=== PATIENT | female | born 1990 | race African-American/Black ===

== ENCOUNTER 2018-09-11 10:16 | Observation (INO) | payer OTHER ==
--- NOTE | 2018-09-11 11:11 | PDOC ---
History of Present Illness - History of Present Illness Initial Comments: 09/11/18 11:39 The patient is a 28 year old female, with a significant past medical history of iron deficiency anemia, who presents to the emergency department sent to the ED for blood transfusion after lab work revealing a hemoglobin 5.7 yesterday. The patient states she has been experiencing intermittent left chest pain since getting the results from the office yesterday and states she can not tell if the pain is stress/anxiety or "real chest pain." The patient denies shortness of breath, headache and dizziness. The patient denies fever, chills, nausea, vomit, diarrhea and constipation. The patient denies dysuria, frequency, urgency and hematuria. 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) <Aurora Sims - Last Filed: 09/11/18 11:39> - General History Source: Patient Exam Limitations: No Limitations <Patrizia Gonzalez - Last Filed: 09/11/18 12:28> - General Chief Complaint: Revisit, Lab Variance Stated Complaint: LOW BLOOD COUNT Time Seen by Provider: 09/11/18 10:42 Past History <Aurora Sims - Last Filed: 09/11/18 11:39> - Past Medical History COPD: No Other medical history: on Methadone - Suicide/Smoking/Psychosocial Hx Smoking History: Current every day smoker Number of Cigarettes Smoked Daily: 20 Information on smoking cessation initiated: Yes Hx Alcohol Use: No Drug/Substance Use Hx: No <Patrizia Gonzalez - Last Filed: 09/11/18 12:28> - Past Medical History Allergies/Adverse Reactions: Allergies Allergy/AdvReac Type Severity Reaction Status Date / Time No Known Allergies Allergy Verified 09/11/18 10:25 Home Medications: Ambulatory Orders NK [No Known Home Medication] 09/11/18 Review of Systems - Review of Systems Able to Perform ROS?: Yes Comments:: 09/11/18 11:41 CONSTITUTIONAL: Absent: fever, no chills, no fatigue EYES: Absent: visual changes ENT: Absent: ear pain, no sore throat CARDIOVASCULAR: (+) chest pain, Absent: no palpitations RESPIRATORY: Absent: cough, no SOB GASTROINTESTINAL: Absent: abdominal pain, no nausea, no vomiting, no constipation, no diarrhea GENITOURINARY: Absent: dysuria, no frequency, no hematuria MUSCULOSKELETAL: Absent: back pain, no arthralgia, no myalgia SKIN: Absent: rash NEURO: Absent: headache <KavitaCarmita ortizanda - Last Filed: 09/11/18 11:39> *Physical Exam - Vital Signs Last Vital Signs Temp Pulse Resp BP Pulse Ox 98 F 103 H 19 108/41 L 100 09/11/18 10:22 09/11/18 10:22 09/11/18 10:22 09/11/18 10:22 09/11/18 10:22 - Physical Exam Comments: 09/11/18 11:42 GENERAL: The patient is in no acute distress. HEAD: Normal with no signs of trauma. EYES: (+) conjunctiva pallor. PERRLA, EOMI, sclera anicteric, ENT: Ears normal, nares patent, oropharynx clear without exudates. Moist mucous membranes. NECK: Normal range of motion, supple without lymphadenopathy, JVD, or masses. LUNGS: Breath sounds equal, clear to auscultation bilaterally. No wheezes, and no crackles. HEART:Regular rate and rhythm, normal S1 and S2 without murmur, rub or gallop. ABDOMEN: Soft, nontender, normoactive bowel sounds. No guarding, no rebound. No masses palpable. EXTREMITIES: Normal range of motion, no edema. No clubbing or cyanosis. No erythema, or tenderness. NEUROLOGICAL: Cranial nerves II through XII grossly intact. Normal speech. No focal neurological deficits. MUSCULOSKELETAL: Back non-tender to palpation, no CVA tenderness SKIN: Warm, Dry, normal turgor, no rashes or lesions noted. <Aurora Sims - Last Filed: 09/11/18 11:39> - Vital Signs Last Vital Signs Temp Pulse Resp BP Pulse Ox 98 F 103 H 19 108/41 L 100 09/11/18 10:22 09/11/18 10:22 09/11/18 10:22 09/11/18 10:22 09/11/18 10:22 <Patrizia Gonzalez - Last Filed: 09/11/18 12:28> Moderate Sedation - Procedure Monitoring Vital Signs: Procedure Monitoring Vital Signs Temperature 98 F 09/11/18 10:22 Pulse Rate 103 H 09/11/18 10:22 Respiratory Rate 19 09/11/18 10:22 Blood Pressure 108/41 L 09/11/18 10:22 O2 Sat by Pulse Oximetry (%) 100 09/11/18 10:22 <Aurora Sims - Last Filed: 09/11/18 11:39> - Procedure Monitoring Vital Signs: Procedure Monitoring Vital Signs Temperature 98 F 09/11/18 10:22 Pulse Rate 103 H 09/11/18 10:22 Respiratory Rate 19 09/11/18 10:22 Blood Pressure 108/41 L 09/11/18 10:22 O2 Sat by Pulse Oximetry (%) 100 09/11/18 10:22 <Patrizia Gonzalez - Last Filed: 09/11/18 12:28> ED Treatment Course - LABORATORY CBC & Chemistry Diagram: 09/11/18 11:00 09/11/18 11:15 - ADDITIONAL ORDERS Additional order review: Laboratory Results 09/11/18 11:00 Blood Type Cancelled Antibody Screen Cancelled 09/11/18 11:00 RBC 3.91 MCV 52.3 L MCHC 29.2 L RDW 21.0 H MPV 8.7 Neutrophils % 65.1 Lymphocytes % 25.5 Monocytes % 5.6 Eosinophils % 3.2 Basophils % 0.6 <Aurora Sims - Last Filed: 09/11/18 11:39> - LABORATORY CBC & Chemistry Diagram: 09/11/18 11:00 09/11/18 11:15 <Patrizia Gonzalez - Last Filed: 09/11/18 12:28> Medical Decision Making - Medical Decision Making 09/11/18 11:15 Ms Moore is a 28 yo F who presents to the ER due to anemia Pt has a history of metomenorrhagiaand subsequent anemia Pt was seen by head waitress placed on control Pt still having heavy periods No lightheadedness or dizziness Pt does have intermittent chest pain No shortness of breath Hgb 5.7 (outpatient) Clinical impression: Anemia Will do basic labs and type and screen Will transfuse Will place on observation 09/11/18 11:54 Laboratory Tests 09/11/18 09/11/18 11:00 11:00 WBC 8.4 Hgb 6.0 L* Hct 20.4 L Plt Count 482 H Serum , Qual Negative call placed to Dr Reed Will place on observation PRBC ordered 09/11/18 12:28 EKG - Twelve-lead EKG was performed and reviewed by me. There is normal sinus rhythm with a normal rate. The axis is normal. The intervals are normal. There are no ST or T wave abnormalities. Impression: Normal twelve-lead EKG <Patrizia Gonzalez - Last Filed: 09/11/18 12:28> *DC/Admit/Observation/Transfer - Attestations Scribe Attestion: 09/11/18 11:42 Documentation prepared by Aurora Sims, acting as medical educator for Patrizia Gonzalez MD <Aurora Sims - Last Filed: 09/11/18 11:39> - Discharge Dispostion Decision to Admit order: Yes <Patrizia Gonzalez - Last Filed: 09/11/18 12:28> Diagnosis at time of Disposition: Symptomatic anemia - Discharge Dispostion Condition at time of disposition: Stable
[2018-09-11 11:25] LABS: BASO % 0.6 % (0-2.0); EOS % 3.2 % (0-4.5); HEMATOCRIT 20.4 % (32.4-45.2); LYMPH % 25.5 % (8-40); MCHC 29.2 g/dl (32.0-36.0); MEAN CELL VOLUME 52.3 fl (80-96); MEAN PLT VOLUME 8.7 fl (7.5-11.1); MONO % 5.6 % (3.8-10.2); NEUT % 65.1 % (42.8-82.8); PLATELET COUNT 482 K/MM3 (134-434); RBC 3.91 M/mm3 (3.60-5.2); WHITE BLOOD COUNT 8.4 K/mm3 (4.0-10.0)
[2018-09-11 11:30] LABS: MCH 15.3 pg (25.7-33.7)
[2018-09-11 12:04] LABS: ALBUMIN 3.5 g/dl (3.4-5.0); ALK PHOS 77 U/L (45-117); ANION GAP 5 MMOL/L (8-16); BILIRUBIN,TOTAL 0.2 mg/dL (0.2-1); BLOOD UREA NITROGEN 10 mg/dL (7-18); CALCIUM 8.4 mg/dL (8.5-10.1); CHLORIDE 107 mmol/L (98-107); CO2 26 mmol/L (21-32); CREATININE 0.8 mg/dL (0.55-1.3); GLUCOSE,RANDOM 86 mg/dL (74-106); POTASSIUM 4.4 mmol/L (3.5-5.1); SGOT/AST 21 U/L (15-37); SGPT/ALT 18 U/L (13-61); SODIUM 137 mmol/L (136-145); TOT PROT 7.1 g/dl (6.4-8.2)
[2018-09-11 12:23] LABS: ANISOCYTOSIS 3+; MACROCYTOSIS 0; OVALOCYTE 1+; PLATELET ESTIMATE NORMAL; TARGET CELLS 1+
--- NOTE | 2018-09-11 13:56 | HP ---
Admitting History and Physical - Primary Care Physician PCP: Warren Reed - Admission History of Present Illness: 28 year old female, with a significant past medical history of iron deficiency anemia, who presents to the emergency department sent to the ED for blood transfusion after lab work revealing a hemoglobin 5.7 yesterday. The patient states she has been experiencing intermittent left chest pain since getting the results from the office yesterday and states she can not tell if the pain is stress/anxiety or "real chest pain." - Past Medical History Heme/Onc: Yes: Anemia - Smoking History Smoking history: Current every day smoker Aproximately how many cigarettes per day: 20 - Alcohol/Substance Use Hx Alcohol Use: No Home Medications - Allergies Allergies/Adverse Reactions: Allergies Allergy/AdvReac Type Severity Reaction Status Date / Time No Known Allergies Allergy Verified 09/11/18 10:25 - Home Medications Home Medications: Ambulatory Orders Norgestrel-Ethinyl Estradiol [Cryselle-28 Tablet] 1 each PO ONCE 09/11/18 Physical Examination Vital Signs: Vital Signs Temperature 98 F 09/11/18 10:22 Pulse Rate 103 H 09/11/18 10:22 Respiratory Rate 09/11/18 10:22 Blood Pressure 108/41 L 09/11/18 10:22 O2 Sat by Pulse Oximetry (%) 100 09/11/18 10:22 Constitutional: Yes: No Distress HENT: Yes: Atraumatic Neck: Yes: Supple Cardiovascular: Yes: Regular Rate and Rhythm Respiratory: Yes: CTA Bilaterally Gastrointestinal: Yes: Normal Bowel Sounds Extremities: Yes: WNL Edema: No Peripheral Pulses WNL: Yes Neurological: Yes: Alert, Oriented Labs: CBC, BMP 09/11/18 11:00 09/11/18 11:15 Problem List - Problems (1) Symptomatic anemia Assessment/Plan: transfuse 2 u prbc Code(s): D64.9 - ANEMIA, UNSPECIFIED Assessment/Plan Laboratory Tests 09/11/18 09/11/18 09/11/18 11:00 11:00 11:00 WBC 8.4 RBC 3.91 Hgb 6.0 L* Hct 20.4 L MCV 52.3 L MCH 15.3 L MCHC 29.2 L RDW 21.0 H Plt Count 482 H MPV 8.7 Absolute Neuts (auto) 5.5 Neutrophils % 65.1 Lymphocytes % 25.5 Monocytes % 5.6 Eosinophils % 3.2 Basophils % 0.6 Nucleated RBC % 0 Hypochromia 1+ Platelet Estimate Normal Polychromasia 1+ Poikilocytosis 3+ Anisocytosis 3+ Microcytosis 3+ Macrocytosis 0 Target Cells 1+ Ovalocytes 1+ Schistocytes 1+ Sodium Potassium Chloride Carbon Dioxide Anion Gap BUN Creatinine Creat Clearance w eGFR Random Glucose Calcium Total Bilirubin AST ALT Alkaline Phosphatase Total Protein Albumin TSH Serum , Qual Negative Blood Type Cancelled Antibody Screen Cancelled Crossmatch 09/11/18 09/11/18 11:15 11:20 WBC RBC Hgb Hct MCV MCH MCHC RDW Plt Count MPV Absolute Neuts (auto) Neutrophils % Lymphocytes % Monocytes % Eosinophils % Basophils % Nucleated RBC % Hypochromia Platelet Estimate Polychromasia Poikilocytosis Anisocytosis Microcytosis Macrocytosis Target Cells Ovalocytes Schistocytes Sodium 137 Potassium 4.4 Chloride 107 Carbon Dioxide 26 Anion Gap 5 L BUN 10 Creatinine 0.8 Creat Clearance w eGFR 86.04 Random Glucose 86 Calcium 8.4 L Total Bilirubin 0.2 AST 21 ALT 18 Alkaline Phosphatase 77 Total Protein 7.1 Albumin 3.5 TSH 1.89 Serum , Qual Blood Type B POSITIVE Antibody Screen Negative Crossmatch See Detail Active Medications Generic Name Dose Route Start Last Admin Trade Name Freq PRN Reason Stop Dose Admin Acetaminophen 650 mg 09/11/18 13:57 Tylenol - PO Q6H PRN FEVER Nicotine 21 mg 09/12/18 10:00 Nicoderm Patch - TD DAILY [facility]
[2018-09-11] MEDS ORDERED: ACETAMINOPHEN 325 MG TABLET (FP) PO PRN (13:57)
[2018-09-11] MEDS: NICOTINE 21 MG/24 HOURS TOPICAL PATCH TD SCH (19:35)
[2018-09-11 20:46] VITALS: BMI 38.0
[2018-09-12] MEDS ORDERED: METHADONE HCL 40 MG DISPERSABLE TABLET ONE (06:57)
[2018-09-12] MEDS ORDERED: METHADONE HCL 10 MG TABLET ONE (06:58)
[2018-09-12] MEDS ORDERED: METHADONE 40 MG, METHADONE 20 MG PO SCH (07:00)
[2018-09-12 07:03] VITALS: BP 130/71; PULSE 89; TEMP 98.4
[2018-09-12] MEDS: NICOTINE 21 MG/24 HOURS TOPICAL PATCH TD SCH ×2 (08:39→10:20)
[2018-09-12 09:31] LABS: BASO % 0.6 % (0-2.0); EOS % 3.3 % (0-4.5); HEMATOCRIT 26.3 % (32.4-45.2); HEMOGLOBIN 8.2 GM/dL (10.7-15.3); LYMPH % 19.2 % (8-40); MEAN CELL VOLUME 59.4 fl (80-96); MEAN PLT VOLUME 8.7 fl (7.5-11.1); MONO % 4.3 % (3.8-10.2); NEUT % 72.6 % (42.8-82.8); PLATELET COUNT 464 K/MM3 (134-434); RBC 4.43 M/mm3 (3.60-5.2); RDW 32.9 % (11.6-15.6); WHITE BLOOD COUNT 9.9 K/mm3 (4.0-10.0)
[2018-09-12 09:43] LABS: MCH 18.4 pg (25.7-33.7)
[2018-09-12] MEDS ORDERED: NICOTINE 21 MG/24 HOURS TOPICAL PATCH TD SCH (10:00)
[2018-09-12] MEDS ORDERED: METHADONE HCL 40 MG DISPERSABLE TABLET PO SCH (10:00)
--- NOTE | 2018-09-12 11:01 | EKG ---
Test Reason : Blood Pressure : / mmHG Vent. Rate : 094 BPM Atrial Rate : 094 BPM P-R Int : 132 ms QRS Dur : 086 ms QT Int : 366 ms P-R-T Axes : 055 073 022 degrees QTc Int : 457 ms POOR DATA QUALITY, INTERPRETATION MAY BE ADVERSELY AFFECTED NORMAL SINUS RHYTHM NORMAL ECG WHEN COMPARED WITH ECG OF 23-APR-2011 19:55, NO SIGNIFICANT CHANGE WAS FOUND Confirmed by MISBAH LEONE, RADHA ([id number]) on 09/12/2018 11:01:28 AM Referred By: Confirmed By:RADHA CRAWLEY MD
== END 2018-09-12 10:33 | disposition home or self-care (01) ==
LOC: JER 10:16 → JERBED 11:55 → J5S 12:46
PROVIDERS: ADMIT Internal Medicine; ATTEND Internal Medicine
PROC: 30233N1 Transfusion of Nonautologous Red Blood Cells into Peripheral Vein, Percutaneous Approach (ICD-10-PCS; principal; 2018-09-11)
DX: D50.9 Iron deficiency anemia, unspecified (principal); F17.210 Nicotine dependence, cigarettes, uncomplicated
CPT/HCPCS: 36415; 36430; 71045-TC-FY; 80053; 84443; 84703; 85025; 86850; 86900; 86901; 86922; 93005; 93010; 99285-25; G0378; P9038; P9058